=== PATIENT | female | born 1945 | race Caucasian/White ===

== ENCOUNTER → 2019-06-21 09:16 | Outpatient (CLI) | payer MEDICARE, OTHER | END | disposition home or self-care (01) | LOC: D.RAD 09:16 | PROVIDERS: ATTEND Internal Medicine Gastroenterology | DX: K44.9 Diaphragmatic hernia without obstruction or gangrene (principal) ==

== ENCOUNTER 2019-07-23 08:12 | Outpatient (CLI) | payer MEDICARE, OTHER ==
--- NOTE | 2019-07-23 09:41 | NUR ---
MANOMETRY COMPLETED. NO S/S OF ACUTED DISTRESS NOTED. DC'D HOME AMBULATORY WITH . ADVISED TO CALL DR ZIMMERMAN OR COME BACK IF ANY PROBLEMS. VOICED UNDERSTANDING.
== END 2019-07-23 09:27 | disposition home or self-care (01) ==
LOC: D.OPS 08:12
PROVIDERS: ATTEND Surgery
DX: K21.9 Gastro-esophageal reflux disease without esophagitis (principal); K44.9 Diaphragmatic hernia without obstruction or gangrene

== ENCOUNTER 2019-08-06 05:48 | Day surgery (SDC) | payer MEDICARE, OTHER ==
[~2019-08-06] VITALS: Ht 160 cm; Wt 60.5 kg
[2019-08-06] VITALS (12 sets, daily range): BP systolic 143–172; BP diastolic 74–97; Ht 160 cm; Wt 60.5 kg
--- NOTE | ~2019-08-06 | OP ---
PATIENT NAME: KWASI ADHIKARI MEDICAL RECORD: [id number] :47 LOCATION:[facility]2220 ADMISSION DATE: SURGEON: PAULINO ZIMMERMAN MD DATE OF OPERATION: 08/06/2019 PREOPERATIVE DIAGNOSES: 1. Paraesophageal hernia. 2. Gastroesophageal reflux disease. 3. Hypertension. 4. Hypercholesterolemia. 5. Ulcerative colitis. 6. Esophageal motility disorder. POSTOPERATIVE DIAGNOSES: 1. Paraesophageal hernia. 2. Gastroesophageal reflux disease. 3. Hypertension. 4. Hypercholesterolemia. 5. Ulcerative colitis. 6. Esophageal motility disorder. PROCEDURE: Laparoscopic paraesophageal hernia repair with Toupet fundoplication. SURGEON: Paulino Zimmerman MD REPORT OF PROCEDURE: The patient's abdomen was prepped and draped in sterile fashion. A Veress needle was inserted in the left upper quadrant and the abdomen was insufflated. An 11-mm Visiport trocar was inserted in the midline just above the umbilicus. We could see the Veress needle and there was no sign of any injury to bowel or surrounding structures. An 11-mm trocar was then placed in the left subcostal region, a 5-mm trocar was placed in the epigastrium, a 5-mm trocar was placed in the right lateral subcostal region, and a final 5-mm trocar was placed in left lateral abdomen. The liver was elevated and a liver retractor was placed under the left lobe. With this, we could see that the patient had about the top half of the stomach projecting up into the chest. The stomach actually came down quite nicely, but would fall back up into the chest when released. We began our dissection by taking down the lesser omentum using Harmonic scalpel. We continued this dissection to the right side of the right jeremiah. There was a large vessel present within this and we were able to work around this and maintained it throughout the operation. We scored the peritoneum on the right side of the right jeremiah and began taking down the hernia sac from the thoracic cavity. We did this as far posteriorly and anteriorly as possible. Once we did this, we went to the greater curvature of the stomach and about snf down the greater curvature, we began taking down the short gastrics using Harmonic scalpel. We continued this dissection up over the fundus of the stomach to the left side of the right jeremiah. This was dissected free and we scored the peritoneum and began taking down the hernia sac from the thoracic cavity. At this point, we were able to completely free up the hernia sac and pulled this down out of the thoracic cavity and actually remove it off of the anterior aspect of the stomach. The patient's esophagus was clearly visualized and we could see the vagus nerves bilaterally. We continued our dissection as high from the chest as we possibly could to get as much length on the esophagus. At the conclusion of the case, the GE junction was resting comfortably in the abdominal cavity without any tension. We then closed the OPERATIVE REPORT [id number] KWASI ADHIKARI esophageal hiatus with interrupted 0 Polydeks times 3. We then performed a 270-degree posterior wrap of the fundus of the stomach around the distal esophagus. We sutured this into place with interrupted 0 Polydeks times 6. There appear to be a nice wrap that did not appear to be under significant tension. We then saw no evidence of any active bleeding. We irrigated out the abdomen with normal saline. The 11-mm trocar site fascias were then closed with 0 Vicryl using a Armond-Snehal suture passer device. The ports and insufflation were then removed. The wounds were infused with 10 mL of 0.25% Marcaine with epinephrine and then closed with subcutaneous 5-0 Monocryl. COMPLICATIONS: None. CONDITION: Stable. ANESTHESIA: General endotracheal and local. BLOOD LOSS: Minimal. TRANSINT:[id number] Voice Confirmation ID: [id number] DOCUMENT ID: [id number] PAULINO ZIMMERMAN MD CC: MERCED ESCAMILLA MD [id number] DICTATION DATE: 08/06/19 1111 SLAT TWISTER: 08/06/19 1630 [facility] [address] [id number]
[~2019-08-06 05:48] MED LIST: CLARITIN 10 MG10 MG PO; LIPITOR10 MG PO; PENTASA 250 MG250 MG PO; PROTONIX20 MG PO; VASOTEC10 MG PO
[2019-08-06 06:18] LABS: BASOPHILS 0.4 % (0-2); EOSINOPHILS 6.2 % (0-7); HEMATOCRIT 41.2 % (36.0-48.0); HEMOGLOBIN 13.5 g/dL (12-16); IMMATURE GRANULOCYTES 0.2 % (0-5); LYMPHOCYTES 30.9 % (15-50); MCH 26.3 pg (26.0-34.0); MCHC 32.8 g/dL (31.0-37.0); MCV 80.3 fL (80.0-100.0); MEAN PLATELET VOLUME 9.2 fL (7.4-10.4); MONOCYTES 6.9 % (2-11); NEUTROPHILS 55.4 % (40-80); PLATELET COUNT 323 10x3/uL (130-400); RBC 5.13 10x6/uL (4.00-5.40); RDW 13.7 % (11.5-14.5); WBC 9.5 10x3/uL (4.8-10.8)
[2019-08-06 06:57] LABS: ANION GAP 16.3 mmol/L (8-16); CALCIUM 9.7 mg/dL (8.5-10.1); CARBON DIOXIDE 29.6 mmol/L (21.0-32.0); CREATININE - SERUM 0.9 mg/dL (0.6-1.3); POTASSIUM - SERUM 3.9 mmol/L (3.5-5.1)
[2019-08-06] MEDS ORDERED: GLUCOPHAGE500 MG PO (07:11)
--- NOTE | 2019-08-06 11:33 | NUR ---
OPA IN AIRWAY ON ADMIT
--- NOTE | 2019-08-06 13:47 | NUR ---
PATIENT ADMITTED TO ROOM 2220. ADMISSION COMPLETE. LAP SITES TO ABD C/D/I. FALL PRECAUTIONS IN PLACE. DILAUDID SUPERVISOR PRESSING DEPARTMENT SET UP AND PATIENT EDUCATION PROVIDED. VERBALIZED UNDERSTANDING. WILL CONTINUE TO MONITOR.
--- NOTE | 2019-08-06 18:28 | NUR ---
RESTING IN BED. DENIES NEEDS. WILL CONTINUE TO MONITOR.
[2019-08-07 05:28] LABS: BASOPHILS 0.1 % (0-2); EOSINOPHILS 0.1 % (0-7); HEMOGLOBIN 12.6 g/dL (12-16); IMMATURE GRANULOCYTES 0.4 % (0-5); LYMPHOCYTES 9.7 % (15-50); MCH 25.9 pg (26.0-34.0); MCHC 32.3 g/dL (31.0-37.0); MCV 80.2 fL (80.0-100.0); MEAN PLATELET VOLUME 9.8 fL (7.4-10.4); MONOCYTES 6.9 % (2-11); NEUTROPHILS 82.8 % (40-80); PLATELET COUNT 283 10x3/uL (130-400); RBC 4.86 10x6/uL (4.00-5.40)
[2019-08-07 05:30] LABS: WBC 19.5 10x3/uL (4.8-10.8)
[2019-08-07 05:41] LABS: CALC OSMOLALITY 280 mosm/kg (275-300); CALCIUM 8.4 mg/dL (8.5-10.1); CARBON DIOXIDE 24.9 mmol/L (21.0-32.0); CHLORIDE - SERUM 104 mmol/L (98-107); CREATININE - SERUM 0.7 mg/dL (0.6-1.3); GLUCOSE 173 mg/dL (74-106); POTASSIUM - SERUM 3.9 mmol/L (3.5-5.1); SODIUM 139 mmol/L (136-145); eGFR NON AFRICAN AMERICAN 87 mL/min (90-120)
[2019-08-07 05:42] LABS: UREA NITROGEN 9 mg/dL (7-18)
[2019-08-07 09:32] VITALS: BP 158/84
--- NOTE | 2019-08-07 10:21 | NUR ---
PT TAKING OWN HOME BP MEDS, CONT TO MONITOR, RETURNED FROM SWALLOW STUDY, CONT TO MONITOR, CL EDGAR KUMARI SERVED
[2019-08-07 12:40] VITALS: BP 156/86
[2019-08-07] MEDS ORDERED: HYDROCODON-ACE1 EA10 PO (12:44)
[2019-08-07] MEDS ORDERED: REGLAN5 MG PO (12:44)
--- NOTE | 2019-08-07 14:51 | NUR ---
DC IV, REVIEWED D/C ORDERS, VOICED NO CONCERNS, IV REMOVED AND PT TAKEN TO PRIVATE VEHICLE
== END 2019-08-07 14:50 | disposition home or self-care (01) ==
LOC: D.MS 05:48 → D.OPS 05:48 → D.PAN 08:45 → D.MS 11:45 → D.OPS 08-07 14:50
PROVIDERS: ATTEND Surgery
DX: K44.9 Diaphragmatic hernia without obstruction or gangrene (principal); K21.9 Gastro-esophageal reflux disease without esophagitis; I10 Essential (primary) hypertension; E78.00 Pure hypercholesterolemia, unspecified; K51.90 Ulcerative colitis, unspecified, without complications; K22.4 Dyskinesia of esophagus

== ENCOUNTER → 2020-01-08 10:13 | Outpatient (CLI) | payer MEDICARE, OTHER ==
[2019-08-06 13:19] VITALS: BMI 23.6
[~2020-01-08 10:13] MED LIST changes: +GLUCOPHAGE500 MG PO; +HYDROCODON-ACE1 EA10 PO; +REGLAN5 MG PO
== END | disposition home or self-care (01) ==
LOC: D.LAB 10:13
PROVIDERS: ATTEND Internal Medicine Gastroenterology
DX: K63.89 Other specified diseases of intestine (principal); K57.30 Diverticulosis of large intestine without perforation or abscess without bleeding